=== PATIENT | male | born 1980 | race Caucasian/White ===

== ENCOUNTER 2017-06-19 21:55 | Emergency (ER) | payer MEDICAID, OTHER | END 2017-06-19 22:23 | disposition left against medical advice (07) | LOC: ER 21:57 | DX: Z53.21 Procedure and treatment not carried out due to patient leaving prior to being seen by health care provider (principal) ==

== ENCOUNTER 2019-08-18 08:26 | Emergency (ER) | payer MEDICAID, OTHER ==
[~2019-08-18] VITALS: Ht 180.3 cm; Wt 81.6 kg
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
--- NOTE | 2019-08-18 09:05 | NUR ---
DR GRIMM AT BEDSIDE
[2019-08-18] MEDS ORDERED: KETOROLAC TROMETHAMINE INJ 60 MG/2 ML VIAL IM ONE ×2 (09:25→09:30)
--- NOTE | 2019-08-18 10:26 | NUR ---
ANDRE VELASQUEZ FOR CONSULT.
--- NOTE | 2019-08-18 11:35 | NUR ---
ORTHO AT BEDSIDE
--- NOTE | 2019-08-18 11:53 | NUR ---
Patient discharged to home in stable condition. Written and verbal after care instructions given. Patient verbalizes understanding of instruction.
[2019-08-18 11:57] VITALS: BP 129/76
== END 2019-08-18 11:57 | disposition home or self-care (01) ==
LOC: ER 08:29
DX: S82.142A Displaced bicondylar fracture of left tibia, initial encounter for closed fracture (principal); M25.062 Hemarthrosis, left knee; F41.9 Anxiety disorder, unspecified; W17.89XA Other fall from one level to another, initial encounter; Y93.39 Activity, other involving climbing, rappelling and jumping off; Y92.89 Other specified places as the place of occurrence of the external cause; Y99.8 Other external cause status
CPT/HCPCS: 29505; 73564; 96372; 99283; J1885

== ENCOUNTER 2021-11-16 18:38 | Emergency (ER) | payer MEDICAID ==
[~2021-11-16] VITALS: Ht 177.8 cm; Wt 89.4 kg
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
[2021-11-16] MEDS ORDERED: NALOXONE PREFILLED SYRINGE 2 MG/2 ML SYRINGE ONE (18:42)
[2021-11-16] MEDS ORDERED: ONDANSETRON HCL/PF 4 MG/2 ML VIAL ONE (18:49)
[2021-11-16] MEDS ORDERED: NALO4SPR BNOSTRILS (18:53)
[2021-11-16] MEDS ORDERED: ONDA4TAB11 PO (18:53)
[2021-11-16] MEDS ORDERED: ONDANSETRON HCL/PF - ER 4 MG/2 ML VIAL IM ONE (19:00)
--- NOTE | 2021-11-16 21:12 | NUR ---
SPOKE TO [facility] REGARDING PICKUP. IS GOING TO CALL BACK WITH FOLLOWUP.
--- NOTE | 2021-11-16 21:13 | NUR ---
Patient discharged to home in stable condition. Written and verbal after care instructions given. Patient verbalizes understanding of instruction.
[2021-11-17 02:22] VITALS: BP 123/83
== END 2021-11-17 02:24 | disposition home or self-care (01) ==
LOC: ER 18:42
DX: T40.2X1A Poisoning by other opioids, accidental (unintentional), initial encounter (principal); Y92.89 Other specified places as the place of occurrence of the external cause; F41.9 Anxiety disorder, unspecified
CPT/HCPCS: 82962; 96372; 99283; J2405 ×2; J2310